=== PATIENT | male | born 1940 | race Caucasian/White ===

== ENCOUNTER 2019-12-17 15:43 | Inpatient (IN) | payer MEDICARE ==
[2019-12-17] VITALS (11 sets, daily range): BP systolic 113–166; BP diastolic 56–88; BMI 23.8
[~2019-12-17] VITALS: Ht 182.9 cm; Wt 81.1 kg
--- NOTE | ~2019-12-17 | EC ---
PATIENT:KODY HELLER DATE OF SERVICE: 12/17/19 SEX: M MEDICAL RECORD: [id number] DATE OF : 40 LOCATION:D.M2 D.211 AGE OF PATIENT: 79 ADMISSION DATE: 12/17/19 REFERRING PHYSICIAN: INTERPRETING PHYSICIAN: MONI GUZMAN MD ECHOCARDIOGRAM REPORT ECHO CHARGES 4 ECHO COMPLETE Date: 12/18/19 CLINICAL DIAGNOSIS: ARRY ECHOCARDIOGRAPHIC MEASUREMENTS (adult normal given) AC root (d.<3.7cm) 3.0 cm LV Septum d (<1.2 cm> 0.6 cm Valve Excursion 1.4 cm LV Septum (systole) 1.3 cm Left Atria (s.<4.0cm> 4.1 cm LVPW d(<1.2cm) 1.1 cm RV (d.<2.3cm) 3.6 cm LVPW (sytole) 1.3 cm LV diastole(<5.6CM) 4.4 cm MV E-F(>70mm/sec) cm LV systole 2.7 cm LVOT Diameter 1.6 cm MV exc.(>10mm) cm Est.ejection fraction (50-75%) % DOPPLER: LVIT cm/sec A 52 cm/sec E 73 cm/sec LA cm/sec RVSP 20.7 mmHg LVOT 73 cm/sec AOP1/2T m/s Asc. Ao 106 cm/sec RVOT 43 cm/sec RA cm/sec PA 75 cm/sec AV Gradient Peak 4.5 mmHg AV Mean 2.7 mmHg AV Area 2.7 cm MV Gradient Peak 3.6 mmHg MV Mean 1.6 mmHg MV Area cm COMMENTS: Marker Hand: Brianna BURGESS Knockup Worker: 3 Dr. Mccullough TAPE# PACS Pericardial Effusion Y DATE OF SERVICE: Adequate 2D, color flow imaging, spectral Doppler, and M-Mode. No LVH. LV internal dimension is normal. Wall motion is normal. EF is greater than or equal to 55%. Aortic valve is sclerotic. There is no evidence of stenosis by Doppler interrogation. Left atrium is minimally dilated at 4.1 cm. Mitral valve shows no prolapse. Trace MR. Right-sided chambers are grossly normal. Mild TR. ECHOCARDIOGRAM REPORT [id number] KODY HELLER TRANSINT:[id number] Voice Confirmation ID: [id number] DOCUMENT ID: [id number] MONI GUZMAN MD CC: [id number] DICTATION DATE: 12/18/19 1213 POT WASHER: 12/18/19 1510 ADM IN [place] [id number] [place] [id number]
[~2019-12-17 15:43] MED LIST: BRILINTA90 MG PO; CENTRUM COMPLE1 EACH PO; CO Q-10100 MG PO; LIPITOR40 MG PO; METOPROLOL TART50 MG PO; NORVASC2.5 MG PO; PROAIR HFA8.5 GM INH; TIKOSYN500 MCG PO; VITAMIN B-121000 MCG PO; XANAX0.25 MG PO; XARELTO20 MG PO; ZOLOFT50 MG PO
--- NOTE | 2019-12-17 18:58 | NUR ---
1820 PT RECIEVED IN THE ICU FROM [facility].. PT IS AWAKE AND CONVERSING ON ARRIVAL .. HR IS UAF AND BP IS WNL.. THERE IS A SALINE LOCK RIGHT PIV PT IS WITHOUT C/O AT THIS TIME.. 183 DR EASTMAN BEEPED RETURNED CALL FOR ORDERS HE STATED TO CALL [facility] APN FOR ORDERS.. 184 LJ FOOTEPED.. PER SERVICE.. PT REMAINS WITHOUT DISTRESS OR C/O
--- NOTE | 2019-12-17 19:50 | NUR ---
REC'D REPORT FROM OFF-GOING NURSE, HAVING JUST ARRIVED FROM [facility], WILL INITIATE ADMISSION PROCEDURE. VVS CAF, RATE 56. AWAITING DR. EASTMAN FOR HIS ASSESSMENT AND FURTHER ORDERS. WILL MONITOR.
--- NOTE | 2019-12-17 22:19 | NUR ---
DR. EASTMAN HAS BEEN HERE AND NEW ORDERS INITIATED. CONT WITH SLOW HEART RATE IN 50s, UP TO BSC X 2 THUS FAR WITH BM 1ST TIME. WILL CONT TO MONITOR.
[2019-12-18] VITALS (11 sets, daily range): BP systolic 102–139; BP diastolic 52–74; Ht 182.9 cm; Wt 81.1 kg
--- NOTE | 2019-12-18 00:30 | NUR ---
HAS BEEN UP X 2 THUS FAR TO VOID, STEADY ON FEET. VS REMAIN STABLE. RESP TITRATED O2 DOWN TO 3L, MONITORING O2 SATS STAYING MID 90S. NO CHANGE IN INITIAL ASSESSMENT.
--- NOTE | 2019-12-18 03:15 | NUR ---
O2 SATS 95 - 99%. REMAINS CONT [id number], RATE 50-60. BP HAS TRENDED DOWN SOME BUT HAS BEEN SLEEPING SOUNDLY. NO CHANGE IN INITIAL ASSESSMENT. WILL CONT TO MONITO.
[2019-12-18 03:56] LABS: BASOPHILS 0.1 % (0-2); EOSINOPHILS 1.3 % (0-7); HEMATOCRIT 35.3 % (42.0-54.0); HEMOGLOBIN 11.2 g/dL (13.5-17.5); IMMATURE GRANULOCYTES 1.2 % (0-5); LYMPHOCYTES 17.7 % (15-50); MCHC 31.7 g/dL (31.0-37.0); MCV 88.3 fL (80.0-100.0); MEAN PLATELET VOLUME 9.4 fL (7.4-10.4); MONOCYTES 6.1 % (2-11); NEUTROPHILS 73.6 % (40-80); RDW 16.3 % (11.5-14.5); WBC 10.9 10x3/uL (4.8-10.8)
[2019-12-18 04:03] LABS: PLATELET COUNT 358 10x3/uL (130-400)
[2019-12-18 04:07] LABS: APTT 30.5 SECONDS (22.8-39.4); INR 1.57 (0.85-1.17); PROTIME 18.6 SECONDS (11.6-15.0)
[2019-12-18 04:32] LABS: ALKALINE PHOSPHATASE 92 U/L (30-120); ALT (SGPT) 71 U/L (10-68); CALC OSMOLALITY 282 mosm/kg (275-300); CALCIUM 7.7 mg/dL (8.5-10.1); CARBON DIOXIDE 35.5 mmol/L (21.0-32.0); CHLORIDE - SERUM 98 mmol/L (98-107); CKMB 0.8 U/L (0.0-3.6); CREATINE KINASE 18 UL (21-232); CREATININE - SERUM 1.5 mg/dL (0.6-1.3); GLUCOSE 136 mg/dL (74-106); MAGNESIUM - SERUM 1.9 mg/dL (1.8-2.4); PHOSPHOROUS 3.3 mg/dL (2.5-4.9); PRO BNP 2901 pg/mL (0-450); PROTEIN - SERUM 5.5 g/dL (6.4-8.2); SODIUM 136 mmol/L (136-145); THYROID STIMULATING HORMONE 3.04 uIU/mL (0.36-3.74); TROPONIN-I 0.022 ng/mL (0.000-0.060); UREA NITROGEN 39 mg/dL (7-18); eGFR NON AFRICAN AMERICAN 48 mL/min (90-120)
[2019-12-18] MEDS ORDERED: ALEVE220 MG PO (06:02)
[2019-12-18] MEDS ORDERED: ELIQUIS5 MG PO (06:03)
[2019-12-18] MEDS ORDERED: LASIX20 MG PO (06:12)
[2019-12-18] MEDS ORDERED: OMEGA 3-6-9 PO (06:15)
[2019-12-18] MEDS ORDERED: SPIRIVA18 MCG INH (06:16)
[2019-12-18] MEDS ORDERED: ATARAX 25 MG TA25 MG PO (06:18)
[2019-12-18] MEDS ORDERED: SYMBICORT 16010.2 GM INH (06:19)
--- NOTE | 2019-12-18 07:15 | NUR ---
REPORT RECEIVED. ASSESSMENT COMPLETE PER FLOW SHEET. PT DENIES NEEDS. RESTING COMFORTBLY. PT NOTED TO BE IN A-FIB, A FLUTTER AT TIMES AT A RATE OF 63. WILL CONTINUE TO MONTIOR
--- NOTE | 2019-12-18 10:49 | NUR ---
ASSISTED OOB TO BEDSIDE COMMODE. 100 CC VOID NOTED
--- NOTE | 2019-12-18 12:05 | NUR ---
RECEIVED REPORT FROM ICU. STATES PATIENT IS EATING LUNCH AND WILL BRING AFTER FINISHED.
--- NOTE | 2019-12-18 12:31 | NUR ---
RECEIVED TO ROOM VIA WHEELCHAIR. GLASSES ON AND CELL PHONE IN LAP. RIGHT AC IV INFUSING WITH D 5 1/2 NS W 20 K INFUSING AT 50 CC/HR. 2-3+ EDEMA SEEN TO BILATERAL ANKLES. PATIENT REPORTS THEY ARE BETTER. IN RECLINER WITH FEET UP. CALL LIGHT IN LAP. PLACED ON HEART MONITOR SHOWING CAF. DENIES ANY NEEDS AT THIS TIME.
--- NOTE | 2019-12-18 21:17 | NUR ---
PT SITTING IN BED AWAKE ALERT AND ORIENTED X4. NO SIGNS OR SYMPTOMS OF DISTRESS NOTED. RESPIRATIONS EVEN AND UNLABORED. HEAD OF BED IS ELEVATED 40DEGREES. PT HAS NO COMPLAINTS AT THIS TIME. CALL LIGHT AND OTHER PERSONAL ITEMS WITH IN REACH. PT ENCOURAGED TO CALL FOR HELP WHEN NEEDED. WILL CONTINUE TO MONITOR
[2019-12-19] VITALS (7 sets, daily range): BP systolic 97–126; BP diastolic 49–65
--- NOTE | 2019-12-19 06:22 | NUR ---
I have reviewed this patient and I concur with the Shift Assessment completed by the Licensed Practical Nurse today this shift.
--- NOTE | 2019-12-19 07:49 | NUR ---
ALERT AND ORIENTED. LUNGS DIMINISHED TO BLL. HEART SOUNDS S1 AND S2 HEARD IN ALL [place]. BOWEL SOUNDS ACTIVE X 4. IV TO RIGHT AC PATENT WITHOUT REDNESS. DDENIES NEEDS. BED LOW. BED ALARM ON. CALL RANKIN AND PERSONAL ITEMS IN REACH. WILL CONTINUE TO MONITOR.
--- NOTE | 2019-12-19 10:09 | NUR ---
RESTING IN BED. DENIES NEEDS. WILL CONTINUE TO MONITOR.
[2019-12-19 15:32] LABS: BASOPHILS 0 % (0-2); EOSINOPHILS 2.6 % (0-7); HEMATOCRIT 37.3 % (42.0-54.0); HEMOGLOBIN 11.8 g/dL (13.5-17.5); LYMPHOCYTES 12.3 % (15-50); MCH 28.3 pg (26.0-34.0); MCHC 31.6 g/dL (31.0-37.0); MCV 89.4 fL (80.0-100.0); MEAN PLATELET VOLUME 9.4 fL (7.4-10.4); MONOCYTES 6.3 % (2-11); NEUTROPHILS 77.8 % (40-80); PLATELET COUNT 361 10x3/uL (130-400); RBC 4.17 10x6/uL (4.20-6.10); RDW 16.7 % (11.5-14.5); WBC 12.5 10x3/uL (4.8-10.8)
[2019-12-19 15:54] LABS: ANION GAP 8.9 mmol/L (8-16); CALCIUM 8.1 mg/dL (8.5-10.1); CARBON DIOXIDE 30.1 mmol/L (21.0-32.0); CREATININE - SERUM 1.6 mg/dL (0.6-1.3)
--- NOTE | 2019-12-19 22:47 | NUR ---
PT LYING IN BED AWAKE ALERT AND ORIENTED x4. NO SIGNS OR SYMPTOMS OF DISTRESS NOTED. RESPIRATIONS EVEN AND UNLABORED. ASSIST PT TO RESTROOM. PT HAS NO COMPLAINTS AT THIS TIME. PT REFUSED INSULIN WANTS TO WAIT UNTIL MORNING TO CHECK BLOOD SUGAR AGAIN. CALL LIGHT AND OTHER PERSONAL ITEMS WITH IN REACH. WILL CONTINUE TO MONITOR
[2019-12-20 04:34] VITALS: BP 126/53
[2019-12-20 06:52] LABS: BASOPHILS 0 % (0-2); EOSINOPHILS 2.4 % (0-7); HEMATOCRIT 33.1 % (42.0-54.0); HEMOGLOBIN 10.3 g/dL (13.5-17.5); IMMATURE GRANULOCYTES 0.8 % (0-5); LYMPHOCYTES 14.2 % (15-50); MCH 27.6 pg (26.0-34.0); MCHC 31.1 g/dL (31.0-37.0); MCV 88.7 fL (80.0-100.0); MEAN PLATELET VOLUME 9.8 fL (7.4-10.4); MONOCYTES 6.6 % (2-11); PLATELET COUNT 321 10x3/uL (130-400); RBC 3.73 10x6/uL (4.20-6.10); RDW 16.9 % (11.5-14.5)
[2019-12-20 06:55] LABS: ALBUMIN 1.9 g/dL (3.4-5.0); ANION GAP 8.8 mmol/L (8-16); BILIRUBIN - TOTAL 0.37 mg/dL (0.2-1.3); CALCIUM 7.7 mg/dL (8.5-10.1); CARBON DIOXIDE 28.5 mmol/L (21.0-32.0); CREATININE - SERUM 1.5 mg/dL (0.6-1.3); POTASSIUM - SERUM 4.3 mmol/L (3.5-5.1); PROTEIN - SERUM 5.4 g/dL (6.4-8.2)
[2019-12-20 09:00] VITALS: BP 127/63
[2019-12-20] MEDS ORDERED: BETAPACE 80 MG80 MG PO (12:50)
[2019-12-20] MEDS ORDERED: LEVOFLOXACIN500 MG PO (12:53)
[2019-12-20] MEDS ORDERED: OMNICEF300 MG PO (12:54)
--- NOTE | 2019-12-20 13:41 | MORECARE ---
CASE MANAGEMENT DISCHARGE SUMMARY PATIENT: KODY HELLER UNIT: [id number] ADM DATE: 12/17/19 AGE: 79 : 40 SEX: M ROOM/BED: D.2112 AUTHOR: ASHLEYDOC PHYSICIAN: REFERRING PHYSICIAN: GRETTA EASTMAN MD DATE OF SERVICE: 12/20/19 Discharge Plan Patient Name: KODY HELLER Facility: [facility]:[place] : 1940 Planned Disposition: Home Health Service Anticipated Discharge Date: 12/20/19 Discharge Date: Expected LOS: 3 Initial Reviewer: [email or web address] Initial Review Date: 12/17/2019 Generated: 12/20/19 2:40 pm Comments DCP- Discharge Planning Updated by [email or web address]: Shantelle Lea on 12/20/19 12:[address] CM met with patient to discuss initial discharge planning. Patient is in agreement to proceed with the assessment. Patient reports that he lives at home, alone with his cat, independently. Patient is alert/oriented. PCP: Sherine Coker APN. Pharmacy: [facility] or mail-off. Patient states he has been able to obtain all of hr prescribed medications. HHS: [facility]. DME: Walker, cane, Shower bench, walk-in shower, grab bars. Patient gives permission to speak with family members. Emergency contact: Suzanna Orlando (sister) [phone]. Patient is Independent with all ADL's, medication management, house cleaning, cooking DIRECTOR OF RESIDENTIAL SERVICES. CM discussed the availability of HH, Rehab, SNF, OP Therapy, DME services. Patient feels safe returning to previous environment. Patient denies hospitalization within the past 30 days. Patient denies the use of community resources DIRECTOR OF RESIDENTIAL SERVICES. Transportation at time of discharge: Diana (niece) is on her way to pick him up. Coverage Notice Reviewer: [id number] - Shantelle Lea Notice Issued Date-Time: 12/20/2019 13:39 Notice Type: IM Discharge Notice Notice Delivered To: Patient Relationship to Patient: Self Lining Parts Sewer Name: Kody Heller Delivery Method: HAND - Hand Delivered Rosaline Days: Prior Verbal Notification: Recipient Understood Notice: Yes Recipient Signature: Yes Med Rec Note Co-signed by Attending: Coverage Notice Comment: DC IMM signed and to chart Patient Name: KODY HELLER Page [phone] at 1341 All edits/amendments must be made on the electronic document DICTATION DATE: 12/20/19 1340 MANAGER ASSET: AME 12/20/19 1340 RPT#: [id number] DC DATE: STATUS: ADM IN [facility] [address] [place] [address] END OF REPORT
--- NOTE | 2019-12-20 15:40 | NUR ---
D/C INSTRUCTIONS REVIEWED WITH PT AND FAMILY MEMBER. ALL QUESTIONS ANSWERED AND BOTH VERVBALIZED UNDERSTANDING. IV D/C WITH CATHETER TIP INTACT. MONITOR REMOVED AND RETURNED TO LABEL MACHINE OPERATOR. PT LEFT VIA WHEELCHAIR TO PERSONAL VEHICLE WITH ALL BELONGINGS.
--- NOTE | 2019-12-20 16:59 | MORECARE ---
CASE MANAGEMENT DISCHARGE SUMMARY PATIENT: KODY ARANDA UNIT: [id number] ADM DATE: 12/17/19 AGE: 79 : 40 SEX: M ROOM/BED: D.2112 AUTHOR: ASHLEY,DOC PHYSICIAN: REFERRING PHYSICIAN: GRETTA EASTMAN MD DATE OF SERVICE: 12/20/19 Discharge Plan Patient Name: KODY ARANDA Facility: [facility]:[place] : 1940 Planned Disposition: Home Health Service Anticipated Discharge Date: 12/20/19 Discharge Date: 12/20/2019 Expected LOS: 3 Initial Reviewer: [email or web address] Initial Review Date: 12/17/2019 Generated: 12/20/19 5:58 pm Comments DCP- Discharge Planning Updated by [id number]: Shantelle Lea on 12/20/19 12:[address] CM met with patient to discuss initial discharge planning. Patient is in agreement to proceed with the assessment. Patient reports that he lives at home, alone with his cat, independently. Patient is alert/oriented. PCP: Sherine Coker APN. Pharmacy: [facility] or mail-off. Patient states he has been able to obtain all of hr prescribed medications. [facility]: [facility]. DME: Walker, cane, Shower bench, walk-in shower, grab bars. Patient gives permission to speak with family members. Emergency contact: Suzanna Orlando (sister) [phone]. 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 CM discussed the availability of HH, Rehab, SNF, OP Therapy, DME services. Patient feels safe returning to previous environment. Patient denies hospitalization within the past 30 days. Patient denies the use of community resources PAVING FOREMAN. Transportation at time of discharge: Diana (niece) is on her way to pick him up. Coverage Notice Reviewer: [id number] - Shantelle Lea Notice Issued Date-Time: 12/20/2019 13:39 Notice Type: IM Discharge Notice Notice Delivered To: Patient Relationship to Patient: Self Partner Name: Kody Aranda Delivery Method: HAND - Hand Delivered Rosaline Days: Prior Verbal Notification: Recipient Understood Notice: Yes Recipient Signature: Yes Med Rec Note Co-signed by Attending: Coverage Notice Comment: DC IMM signed and to chart Reviewer: [id number] Lenny Lea Notice Issued Date-Time: 12/20/2019 16:52 Notice Type: Patient Choice Letter Notice Delivered To: Patient Relationship to Patient: Self Partner Name: Kody Aranda Delivery Method: HAND - Hand Delivered Rosaline Days: Prior Verbal Notification: Recipient Understood Notice: Yes Recipient Signature: Yes Med Rec Note Co-signed by Attending: Coverage Notice Comment: [facility] DP export: 12/20/19 12:41 pm Patient Name: KODY ARANDA Page [phone] at 1659 All edits/amendments must be made on the electronic document DICTATION DATE: 12/20/191657 INJECTION OPERATOR: AME 12/20/191657 RPT#: [id number] DC DATE:12/20/19 STATUS: DIS IN [place] [id number] [place] [address] END OF REPORT
--- NOTE | 2019-12-21 13:57 | MORECARE ---
CASE MANAGEMENT DISCHARGE SUMMARY PATIENT: KODY ARANDA UNIT: [id number] ADM DATE: 12/17/19 AGE: 79 : 40 SEX: M ROOM/BED: D.2112 AUTHOR: ASHLEY,DOC PHYSICIAN: REFERRING PHYSICIAN: GRETTA EASTMAN MD DATE OF SERVICE: 12/21/19 Discharge Plan Patient Name: KODY ARANDA Facility: [facility]:[place] : 1940 Planned Disposition: Home Health Service Anticipated Discharge Date: 12/20/19 Discharge Date: 12/20/2019 Expected LOS: 3 Initial Reviewer: [email or web address] Initial Review Date: 12/17/2019 Generated: 12/21/19 2:56 pm Comments DCP- Discharge Planning Updated by [email or web address]: Shantelle Lea on 12/21/19 12:[address] [facility] CM contacted Marisa with [facility] and made her aware of faxed information. DCP- Discharge Planning Updated by [id number]: Shantelle Lea on 12/20/19 12:[address] CM met with patient to discuss initial discharge planning. Patient is in agreement to proceed with the assessment. Patient reports that he lives at home, alone with his cat, independently. Patient is alert/oriented. PCP: Sherine Coker APN. Pharmacy: [facility] or mail-off. Patient states he has been able to obtain all of hr prescribed medications. [facility]: [facility] . DME: Walker, cane, Shower bench, walk-in shower, grab bars. Patient gives permission to speak with family members. Emergency contact: Suzanna Orlando (sister) [phone]. 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 CM discussed the availability of HH, Rehab, SNF, OP Therapy, DME services. Patient feels safe returning to previous environment. Patient denies hospitalization within the past 30 days. Patient denies the use of community resources POWDER CORE TESTER. Transportation at time of discharge: Diana (niece) is on her way to pick him up. External Providers External Provider: [facility] Next Contact Date: Service Request Date: Service Type: Resolution: Reviewer: Comments: Coverage Notice Reviewer: [email or web address] Lenny Lea Notice Issued Date-Time: 12/20/2019 13:39 Notice Type: IM Discharge Notice Notice Delivered To: Patient Relationship to Patient: Self Lead Project Engineer Name: Kody Aranda Delivery Method: HAND - Hand Delivered Rosaline Days: Prior Verbal Notification: Recipient Understood Notice: Yes Recipient Signature: Yes Med Rec Note Co-signed by Attending: Coverage Notice Comment: DC IMM signed and to chart Reviewer: [id number] Lea Notice Issued Date-Time: 12/20/2019 16:52 Notice Type: Patient Choice Letter Notice Delivered To: Patient Relationship to Patient: Self Lead Project Engineer Name: Kody Aranda Delivery Method: HAND - Hand Delivered Rosaline Days: Prior Verbal Notification: Recipient Understood Notice: Yes Recipient Signature: Yes Med Rec Note Co-signed by Attending: Coverage Notice Comment: [facility] Last DP export: 12/20/19 3:59 pm Patient Name: KODY ARANDA Page [phone] at 1357 All edits/amendments must be made on the electronic document DICTATION DATE: 12/21/19 1356 SCANNING CLERK: AME 12/21/19 1356 RPT#: [id number] DC DATE:12/20/19 STATUS: DIS IN [facility] [address] [place] [address] END OF REPORT
== END 2019-12-20 16:11 | disposition home health service (06) | DRG 193 ==
LOC: D.ICU 15:43 → D.M2 18:38
PROVIDERS: Family Medicine; ADMIT Family Medicine; ATTEND Family Medicine
DX: J18.9 Pneumonia, unspecified organism (principal); J96.01 Acute respiratory failure with hypoxia; E43 Unspecified severe protein-calorie malnutrition; J44.0 Chronic obstructive pulmonary disease with (acute) lower respiratory infection; R00.1 Bradycardia, unspecified; T50.995A Adverse effect of other drugs, medicaments and biological substances, initial encounter; I48.0 Paroxysmal atrial fibrillation; I25.10 Atherosclerotic heart disease of native coronary artery without angina pectoris; I34.0 Nonrheumatic mitral (valve) insufficiency; Z68.25 Body mass index [BMI] 25.0-25.9, adult